=== PATIENT | female | born 1940 | race Caucasian/White ===

== ENCOUNTER → 2021-04-06 | Emergency (ER) | payer OTHER ==
[~2021-04-06] MED LIST: ASPIRIN 300 MG SUPP.RECT PR ONE; ASPIRIN 300 MG SUPP.RECT RC ONE; ASPIRIN 81 MG CHEWABLE TABLETS PO ONE; AZITHROMYCIN IVPB 500 MG in DEXTROSE 5%-WATER - 250 ML IVPB ONE; AZITHROMYCIN IVPB 500 MG/250 ML BAG IVPB ONE; CEFTRIAXONE 1 GM in DEXTROSE 5%-WATER - 100 ML IVPB ONE; CEFTRIAXONE 1 GM/50 ML BAG ONE; LACTATED RINGERS SOLUTION 1000 ML INFUS.BAG IV ONE; SODIUM CHLORIDE 0.9% 500 ML INFUS.BAG IV ONE; morphine CARPU-JECT 2 MG/1 ML DISP.SYRIN IVPUSH ONE
[2021-04-06 12:45] VITALS: TEMP 97.1; BMI 18.8
[2021-04-06 15:48] LABS: HEMATOCRIT 29.2 % (32.4-45.2); HEMOGLOBIN 9.2 GM/dL (10.7-15.3); MCH 24.1 pg (25.7-33.7); MCHC 31.5 g/dl (32.0-36.0); MEAN CELL VOLUME 76.5 fl (80-96); MEAN PLT VOLUME 9.3 fl (7.5-11.1); PLATELET COUNT 390 10^3/uL (134-434); RBC 3.81 M/mm3 (3.60-5.2); RDW 17.3 % (11.6-15.6); WHITE BLOOD COUNT 22.3 K/mm3 (4.0-10.0)
[2021-04-06 16:08] LABS: BLOOD UREA NITROGEN 79.9 mg/dL (7-18); CALCIUM 8.1 mg/dL (8.5-10.1)
[2021-04-06 16:11] LABS: CREATININE 1.7 mg/dL (0.55-1.3)
[2021-04-06 16:13] LABS: BILIRUBIN,TOTAL 0.7 mg/dL (0.2-1); TOT PROT 6.3 g/dl (6.4-8.2)
[2021-04-06 16:18] LABS: ANISOCYTOSIS 2+; MACROCYTOSIS 0; OVALOCYTE 1+; PLATELET ESTIMATE NORMAL
[2021-04-06 18:39] LABS: EPI CELLS 3 /uL (0-25.1); HYALINE CASTS 2 /uL (0-3.1); URINE APPEARANCE CLEAR; URINE BACTERIA 2059 /uL (0-1359); URINE BILIRUBIN NEGATIVE (NEGATIVE); URINE COLOR YELLOW; URINE GLUCOSE (UA) NEGATIVE (NEGATIVE); URINE KETONE TRACE (NEGATIVE); URINE LEUK ESTERASE 1+ (NEGATIVE); URINE NITRITE NEGATIVE (NEGATIVE); URINE PROTEIN NEGATIVE (NEGATIVE); URINE RBC 39 /uL (0-23.9); URINE WBC 146 /uL (0-25.8)
[2021-04-06 19:14] VITALS: BP 112/70
[2021-04-06 20:51] LABS: ARTERIAL BLD GAS O2 SATURATION 94.7 % (95-98); ARTERIAL BLOOD GAS PO2 97.6 mmHg (80-100)
[2021-04-06 20:57] LABS: ARTERIAL BLOOD GAS pH 7.074 (7.350-7.450)
[2021-04-06 21:11] VITALS: PULSE 60
== END | disposition expired ==
LOC: JER 11:24
PROC: 3E03329 Introduction of Other Anti-infective into Peripheral Vein, Percutaneous Approach (ICD-10-PCS; principal; 2021-04-06)
PROC: 3E03329 Introduction of Other Anti-infective into Peripheral Vein, Percutaneous Approach (ICD-10-PCS; 2021-04-06)
PROC: 3E033NZ Introduction of Analgesics, Hypnotics, Sedatives into Peripheral Vein, Percutaneous Approach (ICD-10-PCS; 2021-04-06)
DX: J18.9 Pneumonia, unspecified organism (principal); N39.0 Urinary tract infection, site not specified; I44.2 Atrioventricular block, complete
CPT/HCPCS: 36415; 36600; 70450-TC; 71045-TC-FY; 72125-TC; 72170-TC-FY; 73070-TC-RT-FY; 73502-TC-LT-FY; 80053; 81003; 82550; 82553; 82803; 84484; 85025; 87040; 87086; 93005; 93010; 99285-25